=== PATIENT | female | born 1955 | race Caucasian/White ===

== ENCOUNTER 2017-12-31 17:05 | Emergency (ER) | payer BC ==
[~2017-12-31] VITALS: Ht 157.5 cm; Wt 70.3 kg
[2017-12-31] MEDS ORDERED: LISINOPRIL10 MG (17:13)
[2017-12-31] MEDS ORDERED: SYNTHROID50 MCG (17:14)
== END 2017-12-31 19:49 | disposition home or self-care (01) ==
LOC: ER 17:05
DX: M77.52 Other enthesopathy of left foot and ankle (principal)